=== PATIENT | male | born 1985 | race African-American/Black ===

== ENCOUNTER 2023-12-09 19:24 | Emergency (ER) | payer SELFPAY ==
[~2023-12-09] VITALS: Ht 180.3 cm; Wt 96.0 kg
[2023-12-09 19:28] VITALS: O2SAT 99
[2023-12-09] MEDS: IBUPROFEN 400MG TABLET PO ONE (20:42)
[2023-12-09] MEDS: BACITRACIN ZINC OINT UDPKT TOP ONE (21:01)
[2023-12-09] MEDS: LIDOCAINE HCL 1% 20ML VIAL INFIL ONE (21:01)
[2023-12-09] MEDS ORDERED: IBUP-2028 MT (21:56)
[2023-12-09] MEDS ORDERED: BO1 TP (21:56)
[2023-12-09 22:40] VITALS: BP 129/86; PULSE 65; RESP 17; TEMP 36.94740; O2SAT 100
== END 2023-12-09 22:45 | disposition home or self-care (01) ==
LOC: ER 19:24
DX: S05.32XA Ocular laceration without prolapse or loss of intraocular tissue, left eye, initial encounter (principal); R51.9 Headache, unspecified; M25.572 Pain in left ankle and joints of left foot; V86.66XA Passenger of dirt bike or motor/cross bike injured in nontraffic accident, initial encounter; Y93.89 Activity, other specified; Y92.89 Other specified places as the place of occurrence of the external cause; Y99.8 Other external cause status
CPT/HCPCS: 73610; 12015; 99283; J3490; Z7610 ×2